=== PATIENT | female | born 1940 | race Caucasian/White ===

== ENCOUNTER 2019-11-16 08:17 | Emergency (ER) | payer MEDICARE, BC ==
[2019-11-16 08:57] VITALS: BP 137/60
--- NOTE | 2019-11-16 09:15 | UC ---
Respiratory Complaint HPI - HPI Summary HPI Summary: 78 year old female, otherwise healthy, presents with complaint of nasal congestion, intermittent ear pain and post nasal drip for about one week. She initially had some sinus pressure that resolved. Denies associated cough, chills , fever, chest pain nor sob. - History of Current Complaint Chief Complaint: UCRespiratory Stated Complaint: COLD SYMPTOMS,STOMACH ISSUES Time Seen by Provider: 11/16/19 08:44 Hx Obtained From: Patient Onset/Duration: Gradual Onset Pain Intensity: 1 Associated Signs And Symptoms: Positive: URI, Nasal Congestion, Sinus Discomfort - initially, now resolved. Negative: Fever, Chills - Allergies/Home Medications Allergies/Adverse Reactions: Allergies Allergy/AdvReac Type Severity Reaction Status Date / Time effervescent ink Allergy Nausea Uncoded 11/16/19 08:43 formaldehyde Allergy Nausea Uncoded 11/16/19 08:43 latex Allergy Rash Uncoded 11/16/19 08:43 Home Medications: Home Medications Acetaminophen TAB* [Tylenol TAB*] 325 mg PO Q4H PRN 11/16/19 [History Confirmed 11/16/19] PMH/Surg Hx/FS Hx/Imm Hx Previously Healthy: Yes - Surgical History Surgical History: Yes Surgery Procedure, Year, and Place: Left breast lumpectomy 07/2014. Lt [facility]ROS[facility] - Social History Alcohol Use: Occasionally Substance Use Type: None Smoking Status (MU): Never Smoked Tobacco Review of Systems All Other Systems Reviewed And Are Negative: Yes Constitutional: Positive: Negative Skin: Positive: Negative Eyes: Positive: Negative ENT: Positive: Nasal Discharge Respiratory: Negative: Shortness Of Breath, Cough Cardiovascular: Negative: Palpitations, Chest Pain Gastrointestinal: Positive: Negative Genitourinary: Positive: Negative Motor: Positive: Negative Neurovascular: Positive: Negative Musculoskeletal: Positive: Negative Neurological: Positive: Negative Psychological: Positive: Negative Is Patient Immunocompromised?: No Physical Exam Triage Information Reviewed: Yes Appearance: Well-Appearing, No Pain Distress Vital Signs: Initial Vital Signs Temp 98.7 F 11/16/19 08:48 Pulse 76 11/16/19 08:48 Resp 16 11/16/19 08:48 BP 137/60 11/16/19 08:48 Pulse Ox 98 11/16/19 08:48 Vital Signs Reviewed: Yes Eye Exam: Normal ENT: Positive: Pharynx normal, TMs normal. Negative: Sinus tenderness Neck: Positive: Supple, Nontender, No Lymphadenopathy Respiratory: Positive: Lungs clear, Normal breath sounds. Negative: Crackles, Rhonchi, Wheezing Cardiovascular: Positive: RRR, No Murmur Abdomen Description: Positive: Nontender, Soft Musculoskeletal Exam: Normal Neurological Exam: Normal Psychological Exam: Normal Skin Exam: Normal Respiratory Course/Dx - Differential Dx/Diagnosis Differential Diagnosis/HQI/PQRI: Sinusitis Provider Diagnosis: Upper respiratory infection Discharge ED - Sign-Out/Discharge Documenting (check all that apply): Patient Departure All imaging exams completed and their final reports reviewed: No Studies - Discharge Plan Condition: Stable Disposition: HOME Patient Education Materials: Upper Respiratory Infection (ED) Referrals: Raheel Ferguson MD [Primary Care Provider] - Additional Instructions: Drink plenty of fluids. Take Tylenol and Mucinex as needed for symptoms. Follow- up with your primary care physician if your symptoms persist or worsen. - Billing Disposition and Condition Condition: STABLE Disposition: Home
== END 2019-11-16 09:25 | disposition home or self-care (01) ==
LOC: UCCORT 08:17
DX: J06.9 Acute upper respiratory infection, unspecified (principal); Z91.040 Latex allergy status; Z91.09 Other allergy status, other than to drugs and biological substances
CPT/HCPCS: 99211; G0463

== ENCOUNTER 2019-11-24 08:27 | Emergency (ER) | payer MEDICARE, BC ==
[2019-11-24 08:46] VITALS: BP 125/60
--- NOTE | 2019-11-24 09:10 | UC ---
Throat Pain/Nasal Madhu HPI - HPI Summary HPI Summary: 78-year-old female who was seen for an upper respiratory illness last week. Now she has been ill for a total of 2 weeks with sinus congestion, Prelone coryza and postnasal drainage. - History of Current Complaint Chief Complaint: UCGeneralIllness Stated Complaint: SINUS Time Seen by Provider: 11/24/19 08:47 Hx Obtained From: Patient ?: No Onset/Duration: Gradual Onset Severity: Mild Pain Intensity: 8 Cough: Nonproductive Associated Signs & Symptoms: Positive: Sinus Discomfort, Nasal Discharge - Allergies/Home Medications Allergies/Adverse Reactions: Allergies Allergy/AdvReac Type Severity Reaction Status Date / Time effervescent ink Allergy Nausea Uncoded 11/24/19 08:42 formaldehyde Allergy Nausea Uncoded 11/24/19 08:42 latex Allergy Rash Uncoded 11/24/19 08:42 Home Medications: Home Medications Acetaminophen [Tylenol Extra Strength] 500 mg PO ONCE 11/24/19 [History Confirmed 11/24/19] PMH/Surg Hx/FS Hx/Imm Hx Previously Healthy: Yes Cancer History: Breast Cancer - Surgical History Surgical History: Yes Surgery Procedure, Year, and Place: Left breast lumpectomy 07/2014. Lt [facility] ARTHROSCOPY - Social History Alcohol Use: Rare Substance Use Type: None Smoking Status (MU): Never Smoked Tobacco Review of Systems All Other Systems Reviewed And Are Negative: Yes ENT: Positive: Nasal Discharge, Sinus Congestion, Sinus Pain/Tenderness - Right sided sinus fullness and tenderness. Is Patient Immunocompromised?: No Physical Exam Triage Information Reviewed: Yes Appearance: Well-Appearing, No Pain Distress, Well-Nourished Vital Signs: Initial Vital Signs Temp 98.7 F 11/24/19 08:40 Pulse 76 11/24/19 08:40 Resp 16 11/24/19 08:40 BP 125/60 11/24/19 08:40 Pulse Ox 98 11/24/19 08:40 Vital Signs Reviewed: Yes Eyes: Positive: Conjunctiva Clear ENT: Positive: Pharynx normal - Yellow purulent postnasal drainage, Nasal congestion, TMs normal, Sinus tenderness - Right sided maxillary sinus tenderness on palpation., Uvula midline Neck: Positive: Supple, Nontender, No Lymphadenopathy Respiratory: Positive: Lungs clear, Normal breath sounds, No respiratory distress, No accessory muscle use Cardiovascular: Positive: RRR, No Murmur, Pulses Normal, Brisk Capillary Refill Musculoskeletal Exam: Normal Neurological Exam: Normal Psychological Exam: Normal Skin Exam: Normal Throat Pain/Nasal Course/Dx - Course Course Of Treatment: Patient is comfortable here. - Differential Dx/Diagnosis Provider Diagnosis: Sinusitis Discharge ED - Sign-Out/Discharge Documenting (check all that apply): Patient Departure All imaging exams completed and their final reports reviewed: No Studies - Discharge Plan Condition: Good Disposition: HOME Prescriptions: Amoxicillin PO (*) [Amoxicillin 875 MG (*)] 875 mg PO BID 10 Days #20 tab Patient Education Materials: Sinusitis (ED) Referrals: Raheel Ferguson MD [Primary Care Provider] - Additional Instructions: Increase fluids, follow-up with your primary care provider in 5-7 days if no improvement. - Billing Disposition and Condition Condition: GOOD Disposition: Home
== END 2019-11-24 09:16 | disposition home or self-care (01) ==
LOC: UCCORT 08:27
DX: J32.9 Chronic sinusitis, unspecified (principal); Z91.040 Latex allergy status; Z91.09 Other allergy status, other than to drugs and biological substances; Z85.3 Personal history of malignant neoplasm of breast
CPT/HCPCS: 99212; G0463